=== PATIENT | female | born 1965 | race African-American/Black ===

== ENCOUNTER 2021-08-26 10:38 | Emergency (ER) | payer OTHER ==
[2021-08-26 11:02] VITALS: TEMP 98.6; BMI 26.6
[2021-08-26 12:19] VITALS: BP 104/72; PULSE 64
== END 2021-08-26 12:29 | disposition home or self-care (01) ==
LOC: FER 10:38
DX: S06.0X0A Concussion without loss of consciousness, initial encounter (principal); W01.198A Fall on same level from slipping, tripping and stumbling with subsequent striking against other object, initial encounter
CPT/HCPCS: 70450-TC; 99284-25